=== PATIENT | female | born 1970 | race Caucasian/White ===

== ENCOUNTER 2017-07-16 16:09 | Emergency (ER) | payer SELFPAY ==
[2017-07-16] MEDS ORDERED: Ibuprofen 800 MG TAB ONE (17:14)
== END 2017-07-16 17:33 | disposition home or self-care (01) ==
LOC: NAV ERS 16:09
DX: B34.9 Viral infection, unspecified (principal); R04.0 Epistaxis; F41.9 Anxiety disorder, unspecified; F32.9 Major depressive disorder, single episode, unspecified
CPT/HCPCS: 99283

== ENCOUNTER 2017-11-20 22:19 | Emergency (ER) | payer SELFPAY ==
[2017-11-20] MEDS ORDERED: Adacel (T-DAP) 0.5 ML VIAL ONE (22:54)
[2017-11-20] MEDS ORDERED: Lidocaine 1% w/Epinephrine 1:100K 30 ML VIAL ONE (23:10)
[2017-11-20] MEDS ORDERED: Sodium Bicarbonate 2.5 MEQ/5 ML VIAL ONE (23:12)
[2017-11-20] MEDS ORDERED: Acetaminophen 500 MG TAB ONE (23:34)
== END 2017-11-20 23:50 | disposition home or self-care (01) ==
LOC: NAV ERS 22:19
DX: S01.01XA Laceration without foreign body of scalp, initial encounter (principal); F41.9 Anxiety disorder, unspecified; F32.9 Major depressive disorder, single episode, unspecified; W01.10XA Fall on same level from slipping, tripping and stumbling with subsequent striking against unspecified object, initial encounter
CPT/HCPCS: 12001; 90471; 90715; J2001